=== PATIENT | male | born 2000 | race Caucasian/White ===

== ENCOUNTER 2022-12-12 00:10 | Emergency (ER) | payer SELFPAY ==
[2022-12-12] VITALS (12 sets, daily range): BP systolic 113–153; BP diastolic 60–87; PULSE 69–95; RESP 16–22; TEMP 37.1; O2SAT 91–100; BMI 24.3
[2022-12-12] MEDS: morphine 4 mg/mL SDV 1 mL IVP (00:54)
[2022-12-12] MEDS: dexamethasone 10 mg/mL INJ IVP (00:57)
[2022-12-12] MEDS: ketorolac 30 mg/mL INJ 15 MG IVP (00:59)
[2022-12-12] MEDS: diphenhydrAMINE 50 mg/mL SDV 1mL 25 MG IVP (01:01)
[2022-12-12] MEDS: ondansetron 2 mg/ML SDV 2 mL 8 MG IVP (01:03)
[2022-12-12 01:17] LABS: INR 1.09 (0.8-1.2)
[2022-12-12 01:18] LABS: Fibrinogen 469 mg/dL (174-498)
[2022-12-12 01:20] LABS: Basophils # 0.1 10^3/uL (0.0-0.1); Basophils % 0.3 %; Eosinophils # 0.2 10^3/uL (0.0-0.8); Eosinophils % 1.4 %; Hematocrit 42.1 % (42.0-52.0); Hemoglobin 13.5 g/dL (11.7-16.6); Lymphocytes # 1.9 10^3/uL (0.8-4.8); Lymphocytes % 11.1 %; Mean Corpuscular HGB Conc 32.1 g/dL (30.0-36.0); Mean Corpuscular Hemoglobin 29.2 pg (28.0-34.0); Mean Corpuscular Volume 90.9 fl (80-94); Monocytes # 0.9 10^3/uL (0.2-0.9); Monocytes % 5.4 %; Neutrophils # 13.67 10^3/uL (1.8-7.7); Neutrophils % 81.2 %; Nucleated Red Blood Cells % 0 %; Platelet Count 327 10^3/cmm (130-400); Red Blood Count 4.63 10^6/uL (4.1-5.3); Red Cell Distribution Width 12.6 % (12.1-15.1); White Blood Count 16.8 10^3/uL (4.0-10.0)
[2022-12-12 01:21] LABS: D Dimer 0.86 ug/mIFEU (0-0.59)
[2022-12-12 01:25] LABS: Alanine Aminotransferase 20 U/L (0-41); Albumin Level 4.6 g/dL (3.5-5.2); Alkaline Phosphatase 76 U/L (40-130); Aspartate Amino Transferase 19 U/L (0-40); Blood Urea Nitrogen 8 mg/dL (6-20); Calcium 9.5 mg/dL (8.5-10.5); Carbon Dioxide 23 mmol/L (22-29); Chloride 102 mmol/L (98-107); Creatine Phosphokinase 148 U/L (39-308); Glomerular Filtration Rate 170.1 mL/min (90-130); Glucose 110 mg/dL (65-115); Osmolality Calculated 285 mOsm/kg (285-295); Sodium 138 mmol/L (136-145); Total Bilirubin 0.2 mg/dL (0.15-1.2); Total Protein 7.6 g/dL (6.6-8.7)
--- NOTE | 2022-12-12 03:30 | PC.NURSE ---
Rounded on pt, reassessed pt foot and marked swelling. SMCs are intact and minimal swelling is noted.
--- NOTE | 2022-12-12 18:20 | ED_ITS ---
HPI - Animal Bite General: Chief Complaint: Animal Bite Stated Complaint: SNAKE BITE Time Seen by Provider: 12/12/22 00:39 Source: patient History of Present Illness: 22-year-old male bitten in the right heel by copperhead around an hour prior to arrival. He is experiencing heel and ankle pain. MD complaint: animal bite Onset (ago): minute(s) (60) Animal: snake Description of animal: unknown animal Mechanism: bite Location - Extremities: Right: foot Associated symptoms: Reports rash; Deny fever(s), headache(s), short of breath or weakness Review of Systems Const: Denies: fever(s) Card: Denies: chest pain Resp: Denies: dyspnea GI: Reports: nausea; Denies: abdominal pain or vomiting Skin/Breast: Reports: rash, erythema, skin tenderness and skin swelling Neuro: Denies: headache(s) Physical Exam Const: COMMON NORMALS: no acute distress GENERAL APPEARANCE: cooperative; not ill appearing and not frail appearing HENMT: COMMON NORMALS: normocephalic, atraumatic and Normal external nose present HEAD & SCALP: normocephalic and atraumatic FACE & SINUS: normal facial exam and face symmetric NOSE: Normal external nose present Eye: COMMON NORMALS: Equal, round and reactive pupils present and EOMs intact bilaterally PUPIL: Yes Equal, round and reactive pupils present Neck/C-Spine: GENERAL: Yes trachea midline Chest: CHEST: Yes Symmetrical chest wall rise Resp: COMMON NORMALS: normal respiratory effort, No retractions, No use of accessory muscles and clear to auscultation bilaterally AUSCULTATION: clear to auscultation bilaterally Cardio: COMMON NORMALS: regular rate and regular rhythm RATE: regular rate RHYTHM: regular rhythm GI: COMMON NORMALS: Normal to inspection, nondistended, normoactive bowel sounds present Extremity: COMMON NORMALS: no pedal edema NARRATIVE EXTREMITY EXAM: Examination of the right lower extremity reveals 2 puncture wounds to the medial right heel. There is surrounding swelling and redness. There is tenderness. There is no significant ecchymosis. Redness stretches up to the subtalar joint. No streaking. Neuro: TAMIKA COMA SCALE: document GCS findings Tamika coma scale eye opening: Spontaneous [place] coma scale verbal response: Orientated Tamika coma scale motor response: Obey commands [place] coma scale total score: 15 SENSORY EXAM: Yes extremities (intact) Psych: COMMON NORMALS: speech normal SPEECH: Yes normal speech Skin: NARRATIVE SKIN EXAM: See above Course Vital Signs: Vital signs: Vital Signs Temperature 98.7 F 12/12/22 00:13 Pulse Rate 79 12/12/22 05:20 Respiratory Rate 18 12/12/22 05:20 Blood Pressure 113/60 12/12/22 05:20 Pulse Oximetry 100 12/12/22 05:20 Oxygen Delivery Me thod Room Air 12/12/22 04:30 MDM - Animal Bite Medical Decision Making Patient was held in the ER for 6 hours monitoring progression of symptoms. There was only minimal progression of the redness and swelling. It obviously did not pass more than 1 joint. He was given Benadryl, Solu-Medrol, ice, elevation, Toradol and pain medication. His coagulation studies were normal. He had no signs of serum sickness. He will be discharged on pain medication, steroids, to continue elevation. He knows to return for any worsening symptoms. Lab Data 12/12/22 00:56 12/12/22 00:56 Laboratory Results WBC 16.8 10^3/uL (4.0-10.0) H 12/12/22 00:56 RBC 4.63 10^6/uL (4.1-5.3) 12/12/22 00:56 Hgb 13.5 g/dL (11.7-16.6) 12/12/22 00:56 Hct 42.1 % (42.0-52.0) 12/12/22 00:56 MCV 90.9 fl (80-94) 12/12/22 00:56 MCH 29.2 pg (28.0-34.0) 12/12/22 00:56 MCHC 32.1 g/dL (30.0-36.0) 12/12/22 00:56 RDW 12.6 % (12.1-15.1) 12/12/22 00:56 Plt Count 327 10^3/cmm (130-400) 12/12/22 00:56 MPV 11.0 fL (7.4-10.4) H 12/12/22 00:56 Neut % (Auto) 81.2 % 12/12/22 00:56 Lymph % (Auto) 11.1 % 12/12/22 00:56 Lyon % (Auto) 5.4 % 12/12/22 00:56 Eos % (Auto) 1.4 % 12/12/22 00:56 Baso % (Auto) 0.3 % 12/12/22 00:56 Neut # (Auto) 13.67 10^3/uL (1.8-7.7) H 12/12/22 00:56 Lymph # (Auto) 1.9 10^3/uL (0.8-4.8) 12/12/22 00:56 Lyon # (Auto) 0.9 10^3/uL (0.2-0.9) 12/12/22 00:56 Eos # (Auto) 0.2 10^3/uL (0.0-0.8) 12/12/22 00:56 Baso # (Auto) 0.1 10^3/uL (0.0-0.1) 12/12/22 00:56 Nucleated RBC % (auto) 0 % 12/12/22 00:56 Nucleated RBCs # 0.0 /100WBC 12/12/22 00:56 PT 14.50 SECONDS (12.1-14.9) 12/12/22 00:56 INR 1.09 (0.8-1.2) 12/12/22 00:56 APTT 31.0 SECONDS (23.9-36.7) 12/12/22 00:56 Fibrinogen 469 mg/dL (174-498) 12/12/22 00:56 Fibrin Degrad Products Cancelled 12/12/22 00:56 Fibrin Degrad Products Cancelled 12/12/22 00:56 D-Dimer 0.86 ug/mIFEU (0-0.59) H 12/12/22 00:56 Sodium 138 mmol/L (136-145) 12/12/22 00:56 Potassium 4.0 mmol/L (3.5-5.1) 12/12/22 00:56 Chloride 102 mmol/L (98-107) 12/12/22 00:56 Carbon Dioxide 23 mmol/L (22-29) 12/12/22 00:56 Anion Gap 17.0 (5-19) 12/12/22 00:56 BUN 8 mg/dL (6-20) 12/12/22 00:56 Creatinine 0.6 mg/dL (0.7-1.2) L 12/12/22 00:56 GFR Calculation 170.1 mL/min (90-130) H 12/12/22 00:56 Glucose 110 mg/dL (65-115) 12/12/22 00:56 Calculated Osmolality 285 mOsm/kg (285-295) 12/12/22 00:56 Calcium 9.5 mg/dL (8.5-10.5) 12/12/22 00:56 Total Bilirubin 0.2 mg/dL (0.15-1.2) 12/12/22 00:56 AST 19 U/L (0-40) 12/12/22 00:56 ALT 20 U/L (0-41) 12/12/22 00:56 Alkaline Phosphatase 76 U/L (40-130) 12/12/22 00:56 Creatine Kinase 148 U/L (39-308) 12/12/22 00:56 Total Protein 7.6 g/dL (6.6-8.7) 12/12/22 00:56 Albumin 4.6 g/dL (3.5-5.2) 12/12/22 00:56 Globulin 3.0 g/dL (1.3-4.6) 12/12/22 00:56 Discharge Plan Discharge Patient Disposition: Home Clinical Impression: Snake bite Qualifiers: Encounter type: initial encounter Qualified Code(s): W59.11XA - Bitten by nonvenomous snake, initial encounter Condition: Stable Prescriptions: New hydrocodone-acetaminophen 5-325 mg tablet 1 tab PO Q8H PRN (Reason: pain) Qty: 7 0RF ketorolac 10 mg tablet 10 mg PO TID PRN (Reason: pain) Qty: 10 0RF Medrol (Roberto) 4 mg tablets,dose pack See Rx Instructions .ROUTE .COMPLEX Qty: 21 0RF Rx Instructions: orally per package directions Discharge Orders: Discharge ED (Routine); Ordered 12/12/22 Ordered By: Bret Ortiz Patient Instructions: Snake Bite (ED), Opioid Safety, Pain Management Activity Restrictions/Additional Instructions: Continue to ice and elevate. Pain medication as directed. Continue the steroid medication, as it can help with swelling. Return for worsening spreading of swelling despite treatment, vomiting liquids or medications, fever, other concerning symptoms. You should elevate the foot for at least 48 hours. Wash frequently with soap and running water. Do not soak. Print Language: [place] Coding Level of Care Code ED Bath House Attendant for Kartik Adame
--- NOTE | 2022-12-23 12:20 | DCPLANNER ---
TCM called patient due to no primary care physician - patient declines, does not live in the area.
[2022-12-28 10:53] LABS: Miscellaneous Test SEE COMMENTS
== END 2022-12-12 05:58 | disposition home or self-care (01) ==
PROVIDERS: Emergency Provider Emergency Medicine
DX: T63.091A Toxic effect of venom of other snake, accidental (unintentional), initial encounter (principal)
CPT/HCPCS: 80053; 82550; 85025; 85362; 85378; 85384; 85610; 85730; 96374; 96375; 99284; J1100; J1200; J1885; J2270; J2405